=== PATIENT | female | born 1955 | race Caucasian/White ===

== ENCOUNTER 2017-09-24 06:51 | Day surgery (SDC) | payer BC ==
[2017-09-24 07:15] VITALS: BMI 33.6
--- NOTE | 2017-09-24 09:15 | PDOC ---
History of Present Illness - General Chief Complaint: Dialysis Shunt Problem Stated Complaint: FISTULA PROBLEM Time Seen by Provider: 09/24/17 09:15 Past History - Past Medical History Allergies/Adverse Reactions: Allergies Allergy/AdvReac Type Severity Reaction Status Date / Time No Known Allergies Allergy Verified 09/24/17 07:10 Home Medications: Ambulatory Orders Amlodipine Besylate [Norvasc -] 1 tab PO DAILY 08/31/17 Aspirin [ASA -] 1 tab PO DAILY 08/31/17 Cholecalciferol (Vitamin D3) [Vitamin D3 -] 1 tab PO DAILY 08/31/17 Ferric Citrate [Auryxia] 1 tab PO TID 08/31/17 Simvastatin 1 tab PO DAILY 08/31/17 Dialysis: Yes (M-W-F) HTN: Yes Hypercholesterolemia: Yes - Suicide/Smoking/Psychosocial Hx Smoking History: Former smoker Have you smoked in the past 12 months: No Information on smoking cessation initiated: No *Physical Exam - Vital Signs Last Vital Signs Temp Pulse Resp BP Pulse Ox 98.8 F 95 H 19 115/62 98 09/24/17 07:11 09/24/17 07:11 09/24/17 07:11 09/24/17 07:11 09/24/17 07:11
--- NOTE | 2017-09-24 09:34 | PDOC ---
History of Present Illness - General Chief Complaint: Dialysis Shunt Problem Stated Complaint: FISTULA PROBLEM Time Seen by Provider: 09/24/17 09:15 Past History - Past Medical History Allergies/Adverse Reactions: Allergies Allergy/AdvReac Type Severity Reaction Status Date / Time No Known Allergies Allergy Verified 09/24/17 07:10 Home Medications: Ambulatory Orders Amlodipine Besylate [Norvasc -] 1 tab PO DAILY 08/31/17 Aspirin [ASA -] 1 tab PO DAILY 08/31/17 Cholecalciferol (Vitamin D3) [Vitamin D3 -] 1 tab PO DAILY 08/31/17 Ferric Citrate [Auryxia] 1 tab PO TID 08/31/17 Simvastatin 1 tab PO DAILY 08/31/17 Dialysis: Yes (M-W-F) HTN: Yes Hypercholesterolemia: Yes - Suicide/Smoking/Psychosocial Hx Smoking History: Former smoker Have you smoked in the past 12 months: No Information on smoking cessation initiated: No *Physical Exam - Vital Signs Last Vital Signs Temp Pulse Resp BP Pulse Ox 98.8 F 95 H 19 115/62 98 09/24/17 07:11 09/24/17 07:11 09/24/17 07:11 09/24/17 07:11 09/24/17 07:11 ED Treatment Course - LABORATORY CBC & Chemistry Diagram: 09/24/17 09:30 09/24/17 09:30 *DC/Admit/Observation/Transfer Diagnosis at time of Disposition: End stage kidney disease Shunt malfunction Qualifiers: Encounter type: initial encounter Qualified Code(s): T85.618A - Breakdown ( mechanical) of other specified internal prosthetic devices, implants and grafts , initial encounter; T85.618A - Breakdown (mechanical) of other specified internal prosthetic devices, implants and grafts, initial encounter - Discharge Dispostion Condition at time of disposition: Stable Admit: Yes
[2017-09-24 09:52] LABS: BASOPHIL 1.4 % (0-2.0); EOSINOPHIL 1.7 % (0-4.5); MCH 32.2 pg (25.7-33.7); MCHC 32.4 g/dl (32.0-36.0); MEAN CELL VOLUME 99.2 fl (80-96); MEAN PLT VOLUME 8.6 fl (7.5-11.1); NEUTROPHILS 65.3 % (42.8-82.8); PLATELET COUNT 256 K/MM3 (134-434); RDW 16.7 % (11.6-15.6); WHITE BLOOD COUNT 6.3 K/mm3 (4.0-10.0)
[2017-09-24 10:04] LABS: INR 1.08 (0.82-1.09); PROTHROMBIN TIME (PATIENT) 12.2 SEC (9.98-11.88)
[2017-09-24 10:15] LABS: ALBUMIN 4.1 g/dl (3.4-5.0); ANION GAP 10 (8-16); BILIRUBIN,TOTAL 0.4 mg/dL (0.2-1.0); CO2 29 mmol/L (21-32); GLUCOSE,RANDOM 86 mg/dL (74-106); SGOT/AST 10 U/L (15-37); SGPT/ALT 16 U/L (12-78); TOT PROT 8.2 g/dl (6.4-8.2)
[2017-09-24 10:21] LABS: ALK PHOS 91 U/L (45-117)
[2017-09-24] MEDS ORDERED: MIDAZOLAM HCL 2 MG/2 ML SINGLE DOSE VIAL ONE ×2 (11:02)
[2017-09-24] MEDS ORDERED: PROPOFOL 20 ML ONE (11:07)
[2017-09-24] MEDS ORDERED: ceFAZolin SODIUM 1 GM VIAL ONE (11:08)
[2017-09-24] MEDS ORDERED: ceFAZolin SODIUM 1 GM VIAL IVPB ONE (11:08)
[2017-09-24] MEDS ORDERED: LIDOCAINE HCL 1%, 10 MG/ML (50 mL VIAL) IJ ONE ×2 (11:12)
[2017-09-24] MEDS ORDERED: HEPARIN NA (PORCINE) 5,000 UNITS/ML 1ML VIAL SQ ONE (11:16)
[2017-09-24] MEDS ORDERED: PHENYLEPHRINE HCL 10 MG/1 ML SINGLE DOSE VIAL ONE (11:27)
--- NOTE | 2017-09-24 11:34 | OP ---
Operative Note - Note: Operative Date: 09/24/17 Pre-Operative Diagnosis: immature left avf Operation: venogram, venoplasty left avf (balloon maturation) Post-Operative Diagnosis: Same as Pre-op Surgeon: Kevin Espinoza Anesthesia: Fractional Estimated Blood Loss (mls): 10 Operative Report Dictated: Yes
[2017-09-24] MEDS ORDERED: ONDANSETRON 4 MG/2 ML VIAL IVPUSH PRN (11:40)
[2017-09-24] MEDS ORDERED: SODIUM CHLORIDE 1,000 ML IV SCH (11:45)
--- NOTE | 2017-09-24 12:17 | OP ---
DATE OF OPERATION: 09/24/2017 PREOPERATIVE DIAGNOSIS: Immature left arteriovenous fistula. POSTOPERATIVE DIAGNOSIS: Immature left arteriovenous fistula. PROCEDURE: Venogram venoplasty of left arteriovenous fistula, balloon maturation. SURGEON: Kevin Polo MD ANESTHESIA: Fractional. BLOOD LOSS: 10 mL. INDICATIONS: The patient is a 61-year-old female who has a left AV fistula that is about 7-8 mm in diameter on ultrasound and needs balloon maturation before they start using it. Patient came into ambulatory surgery. Patient was consented for the procedure understanding all risks, benefits, and alternatives, and then taken to the operating room. DESCRIPTION OF PROCEDURE: Once in the operating room, she was laid on the operating table in the supine manner, and the area of the left arm was prepped and draped in a sterile surgical manner. We then went ahead, and under ultrasound guidance, we visualized the proximal left AV fistula above the anastomosis and 10 mL of 0.5% lidocaine was injected into the area. We then took our micropuncture needle, punctured the left AV fistula, micropuncture wire was inserted, and a traditional short 6-Spanish sheath was inserted. We then went ahead and shot our venogram showing that the fistula was patent at about 7-8 mm. At this point, a 0.035 floppy guidewire was placed in the central veins, and we went ahead and placed a 9 x 8 balloon in the entire AV fistula from the upper arm to the of the anastomosis balloon using a 9 x 8 balloon. After venoplasty, we performed another venogram by hand injection showing that the fistula was patent. At this point, we used a 4-0 Biosyn stitch, and a figure-of-8 stitch was placed around our sheath, and sheath was pulled. The area was wet and dried, and Dermabond was placed. The patient tolerated the procedure with no complications. Patient has transferred to PACU in stable condition. Total blood loss 10 mL. KEVIN POLO DO [id number]
[2017-09-24 12:40] VITALS: TEMP 98
[2017-09-24 14:22] VITALS: BP 117/66; PULSE 75
--- NOTE | 2017-09-24 17:17 | EKG ---
Test Reason : Blood Pressure : / mmHG Vent. Rate : 084 BPM Atrial Rate : 084 BPM P-R Int : 134 ms QRS Dur : 086 ms QT Int : 384 ms P-R-T Axes : -02 057 046 degrees QTc Int : 453 ms NORMAL SINUS RHYTHM NORMAL ECG NO PREVIOUS ECGS AVAILABLE Confirmed by FRED GANNON MD ([id number]) on 09/24/2017 5:17:22 PM Referred By: Confirmed By:FRED GANNON MD
--- NOTE | 2017-09-29 14:48 | HP ---
Admitting History and Physical - Admission Chief Complaint: Immature left avf Limitations to Obtaining History: No Limitations - Past Medical History Cardiovascular: Yes: HTN, Hyperlipdemia Renal/: Yes: Renal Inusuff - Past Surgical History Past Surgical History: Yes: AV Fistula/Graft - Smoking History Smoking history: Former smoker Have you smoked in the past 12 months: No Home Medications - Allergies Allergies/Adverse Reactions: Allergies Allergy/AdvReac Type Severity Reaction Status Date / Time No Known Allergies Allergy Verified 09/24/17 07:10 - Home Medications Home Medications: Ambulatory Orders Amlodipine Besylate [Norvasc -] 1 tab PO DAILY 08/31/17 Aspirin [ASA -] 1 tab PO DAILY 08/31/17 Cholecalciferol (Vitamin D3) [Vitamin D3 -] 1 tab PO DAILY 08/31/17 Ferric Citrate [Auryxia] 1 tab PO TID 08/31/17 Simvastatin 1 tab PO DAILY 08/31/17 Review of Systems - Review of Systems Constitutional: reports: No Symptoms Eyes: reports: No Symptoms HENT: reports: No Symptoms Neck: reports: No Symptoms Cardiovascular: reports: No Symptoms Respiratory: reports: No Symptoms Gastrointestinal: reports: No Symptoms Genitourinary: reports: No Symptoms Musculoskeletal: reports: No Symptoms Integumentary: reports: No Symptoms Neurological: reports: No Symptoms Endocrine: reports: No Symptoms Hematology/Lymphatic: reports: No Symptoms Psychiatric: reports: No Symptoms Physical Examination Vital Signs: Vital Signs Temperature 98.0 F 09/24/17 12:38 Pulse Rate 75 09/24/17 14:19 Respiratory Rate 20 09/24/17 14:19 Blood Pressure 117/66 09/24/17 14:19 O2 Sat by Pulse Oximetry (%) 96 09/24/17 12:30 Constitutional: Yes: Well Nourished Eyes: Yes: WNL HENT: Yes: WNL Neck: Yes: WNL Cardiovascular: Yes: WNL Respiratory: Yes: WNL Gastrointestinal: Yes: WNL ...Rectal Exam: Yes: WNL Renal/: Yes: WNL Musculoskeletal: Yes: WNL Extremities: Yes: WNL Edema: No Integumentary: Yes: WNL Wound/Incision: Yes: Clean/Dry ...Motor Strength: WNL Psychiatric: Yes: WNL Labs: CBC, BMP 09/24/17 09:30 09/24/17 09:30 Assessment/Plan Immature of left avf 1. For balloon maturation (venogram,venoplasty) today
== END 2017-09-24 14:30 | disposition home or self-care (01) ==
LOC: JER 06:51 → JASUSAT 09:58
PROVIDERS: ATTEND Surgery Vascular Surgery
PROC: 057Y3ZZ Dilation of Upper Vein, Percutaneous Approach (ICD-10-PCS; principal; 2017-09-24 12:00)
DX: T82.898A Other specified complication of vascular prosthetic devices, implants and grafts, initial encounter (principal); I12.0 Hypertensive chronic kidney disease with stage 5 chronic kidney disease or end stage renal disease; Z87.891 Personal history of nicotine dependence
CPT/HCPCS: 36415; 71010-TC; 76000-TC; 80053; 85025; 85610; 85730; 86850; 86900; 86901; 93005; 93010; 94760; 99284-25; J1644

== ENCOUNTER 2017-11-12 06:54 | Day surgery (SDC) | payer OTHER ==
[2017-11-10 16:08] VITALS: BMI 32.9
[2017-11-12] MEDS ORDERED: MIDAZOLAM HCL 2 MG/2 ML SINGLE DOSE VIAL ONE ×2 (09:05→09:32)
[2017-11-12] MEDS ORDERED: ONDANSETRON 4 MG/2 ML VIAL IVPUSH PRN (09:10)
[2017-11-12] MEDS ORDERED: HEPARIN NA (PORCINE) 5,000 UNITS/ML 1ML VIAL ONE (09:12)
[2017-11-12] MEDS ORDERED: LIDOCAINE HCL 1%, 10 MG/ML (20ML VIAL) ONE (09:12)
--- NOTE | 2017-11-12 09:13 | HP ---
Admitting History and Physical - Admission Chief Complaint: stenosis left avf Limitations to Obtaining History: No Limitations - Past Medical History Cardiovascular: Yes: HTN, Hyperlipdemia Renal/: Yes: Renal Inusuff ...: No - Past Surgical History Past Surgical History: Yes: AV Fistula/Graft - Smoking History Smoking history: Former smoker Have you smoked in the past 12 months: No If you are a former smoker, when did you quit?: 40YRS AGO - Alcohol/Substance Use Hx Alcohol Use: No Home Medications - Allergies Allergies/Adverse Reactions: Allergies Allergy/AdvReac Type Severity Reaction Status Date / Time No Known Allergies Allergy Verified 09/24/17 07:10 - Home Medications Home Medications: Ambulatory Orders Amlodipine Besylate [Norvasc -] 1 tab PO DAILY 08/31/17 Aspirin [ASA -] 1 tab PO HS 08/31/17 Cholecalciferol (Vitamin D3) [Vitamin D3 -] 1 tab PO DAILY 08/31/17 Simvastatin 1 tab PO HS 08/31/17 Review of Systems - Review of Systems Constitutional: reports: No Symptoms Eyes: reports: No Symptoms HENT: reports: No Symptoms Neck: reports: No Symptoms Cardiovascular: reports: No Symptoms Respiratory: reports: No Symptoms Gastrointestinal: reports: No Symptoms Genitourinary: reports: No Symptoms Breasts: reports: No Symptoms Reported Musculoskeletal: reports: No Symptoms Integumentary: reports: No Symptoms Neurological: reports: No Symptoms Endocrine: reports: No Symptoms Hematology/Lymphatic: reports: No Symptoms Psychiatric: reports: No Symptoms Physical Examination Vital Signs: Vital Signs Temperature 98.3 F 11/12/17 07:34 Pulse Rate 88 11/12/17 07:34 Respiratory Rate 18 11/12/17 07:34 Blood Pressure 103/48 11/12/17 07:34 O2 Sat by Pulse Oximetry (%) 97 11/12/17 07:34 Constitutional: Yes: Well Nourished, No Distress, Calm Eyes: Yes: WNL, Conjunctiva Clear, EOM Intact HENT: Yes: WNL, Atraumatic, Normocephalic Neck: Yes: WNL, Supple, Trachea Midline Cardiovascular: Yes: WNL, Regular Rate and Rhythm Respiratory: Yes: WNL, Regular, CTA Bilaterally Gastrointestinal: Yes: WNL, Normal Bowel Sounds Musculoskeletal: Yes: WNL Extremities: Yes: WNL Edema: No Integumentary: Yes: WNL Neurological: Yes: WNL, Alert, Oriented ...Motor Strength: WNL Psychiatric: Yes: WNL Labs: CBC, BMP 11/12/17 07:01 Problem List - Problems (1) End stage kidney disease Code(s): N18.6 - END STAGE RENAL DISEASE (2) Shunt malfunction Code(s): T85.618A - BREAKDOWN (MECHANICAL) OF INTERNAL PROSTH DEV/GRFT, INIT Assessment/Plan Stenosis left avf, 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 1. For venogram, venoplasty today
[2017-11-12] MEDS ORDERED: PROPOFOL 20 ML ONE ×2 (09:30)
[2017-11-12] MEDS ORDERED: ceFAZolin SODIUM 1 GM VIAL ONE (09:44)
[2017-11-12] MEDS ORDERED: LIDOCAINE HCL 1%, 10 MG/ML (50 mL VIAL) IJ ONE (10:00)
[2017-11-12 11:26] VITALS: TEMP 98
[2017-11-12] MEDS ORDERED: CEFAZOLIN 1 GM/D5W 1 GM/50 ML BAG IVPB ONE (11:30)
[2017-11-12] MEDS ORDERED: oxyCODONE HCL 5 MG TABLET PO PRN (11:45)
[2017-11-12] MEDS ORDERED: oxyCODONE HCL 5 MG TABLET ONE (11:46)
[2017-11-12 13:53] VITALS: BP 103/50; PULSE 90
== END 2017-11-12 13:00 | disposition home or self-care (01) ==
LOC: JASU-SURG 06:54
PROVIDERS: ATTEND Surgery Vascular Surgery
PROC: 057F3ZZ Dilation of Left Cephalic Vein, Percutaneous Approach (ICD-10-PCS; principal; 2017-11-12 09:00)
DX: T82.858A Stenosis of other vascular prosthetic devices, implants and grafts, initial encounter (principal); I12.0 Hypertensive chronic kidney disease with stage 5 chronic kidney disease or end stage renal disease; N18.6 End stage renal disease; Z99.2 Dependence on renal dialysis; Z87.891 Personal history of nicotine dependence; E78.5 Hyperlipidemia, unspecified
CPT/HCPCS: 36415; 76000-TC; 84132; 94760; J1644